=== PATIENT | female | born 1955 ===

== ENCOUNTER 2023-01-05 06:00 | Outpatient (RCR) | payer MEDICARE, BC, SELFPAY | END 2023-01-06 23:59 | disposition home or self-care (01) | LOC: GPT 06:00 | PROVIDERS: PCP Family Medicine; Visit Provider Physician Assistant | DX: M25.512 Pain in left shoulder (principal) | CPT/HCPCS: 97110; 97161 ==

== ENCOUNTER 2023-01-07 06:00 | Outpatient (RCR) | payer BC, MEDICARE, SELFPAY | END 2023-02-05 23:59 | disposition home or self-care (01) | LOC: GPT 06:00 | PROVIDERS: PCP Family Medicine; Visit Provider Physician Assistant | DX: M25.512 Pain in left shoulder (principal) | CPT/HCPCS: 97110 ==